=== PATIENT | male | born 1955 | race Caucasian/White ===

== ENCOUNTER → 2022-09-11 13:30 | Outpatient (CLI) | payer OTHER, SELFPAY ==
[2022-09-11 19:17] LABS: Add Manual Diff / Slide Review NO; Basophils Absolute Auto 0 /uL (0-100); Basophils Percent Auto 0.9 % (0-2); Eosinophils Absolute Auto 0 /uL (0-450); Eosinophils Percent Auto 0.4 % (2-4); Hematocrit 41.1 % (41-53); Lymphocytes Absolute Auto 900 /uL (1100-4500); Lymphocytes Percent Auto 21.8 % (25-40); Mean Corpuscular HGB Conc 34.1 % (30-36); Mean Corpuscular Hemoglobin 37.1 PG (26-34); Mean Corpuscular Volume 108.9 fL (80-100); Monocytes Absolute Auto 600 /uL (0-900); Monocytes Percent Auto 14.5 % (3-14); Neutrophils Absolute Auto 2600 /uL (1500-7000); Neutrophils Percent Auto 62.4 % (50-75); Platelet Count 155 X10^3/uL (150-400); Red Blood Cell Count 3.77 X10^6/uL (4.5-5.9); Red Cell Distribution Width 14.2 % (11.6-14.8); White Blood Cell Count 4.2 X10^3/uL (4.5-11.0)
[2022-09-11 19:22] LABS: Alanine Aminotransferase 27 IU/L (<50); Albumin 3.9 g/dL (3.5-5.0); Albumin Globulin Ratio 1.5 (1.0-2.8); Alkaline Phosphatase 58 U/L (38-126); Aspartate Aminotransferase 55 IU/L (17-59); BUN Creatinine Ratio 13.7 (6-22); Bilirubin Total 0.8 mg/dL (0.2-1.3); Blood Urea Nitrogen 13 mg/dL (9-20); Carbon Dioxide 30 mmol/L (22-32); Chloride 99 mmol/L (98-107); Cholesterol 196 mg/dL (140-199); Estimated Glomerular Filt Rate > 60 mL/min (>60); Globulin 2.6 g/dL (1.7-4.1); Glucose 103 mg/dL (80-110); HDL Cholesterol 106 mg/dL (40-60); HEMOLYSIS < 15 (0-50); LDL Cholesterol Calculated 62 mg/dL (<100); Potassium 4.2 mmol/L (3.4-5.1); Sodium 137 mmol/L (137-145); Total Protein 6.5 g/dL (6.3-8.2); Triglycerides 141 mg/dL (35-150)
[2022-09-11 19:37] LABS: NT-proBNP (BNP-Adult 18+) 190 pg/mL (<125)
[2022-09-11 19:52] LABS: TSH w/ Reflex to FT4 2.11 uIU/mL (0.47-4.68)
[2022-09-11 20:17] LABS: Vitamin B12 391 pg/mL (239-931)
== END ==
PROVIDERS: PCP Family Medicine; Visit Provider Family Medicine
DX: E78.2 Mixed hyperlipidemia (principal); I10 Essential (primary) hypertension; I48.20 Chronic atrial fibrillation, unspecified; I50.22 Chronic systolic (congestive) heart failure; L40.50 Arthropathic psoriasis, unspecified; Z79.899 Other long term (current) drug therapy
CPT/HCPCS: 80053; 80061; 82607; 83880; 84443; 85025

== ENCOUNTER → 2022-11-27 10:13 | Outpatient (CLI) | payer OTHER, SELFPAY ==
[2022-11-27 20:25] LABS: Add Manual Diff / Slide Review NO; Basophils Absolute Auto 0 /uL (0-100); Basophils Percent Auto 0.3 % (0-2); Eosinophils Absolute Auto 0 /uL (0-450); Hematocrit 42.8 % (41-53); Hemoglobin 14.8 g/dL (13.5-17.5); Lymphocytes Absolute Auto 700 /uL (1100-4500); Lymphocytes Percent Auto 8.5 % (25-40); Mean Corpuscular HGB Conc 34.7 % (30-36); Mean Corpuscular Hemoglobin 36.7 PG (26-34); Monocytes Absolute Auto 1000 /uL (0-900); Monocytes Percent Auto 12.5 % (3-14); Neutrophils Absolute Auto 6500 /uL (1500-7000); Neutrophils Percent Auto 78.7 % (50-75); Platelet Count 153 X10^3/uL (150-400); Red Blood Cell Count 4.04 X10^6/uL (4.5-5.9); Red Cell Distribution Width 13.7 % (11.6-14.8); White Blood Cell Count 8.3 X10^3/uL (4.5-11.0)
== END ==
PROVIDERS: PCP Family Medicine; Visit Provider Physician Assistant Medical
DX: L03.114 Cellulitis of left upper limb (principal); W50.3XXA Accidental bite by another person, initial encounter
CPT/HCPCS: 85025; 87070; 87075; 87205

== ENCOUNTER 2022-11-27 18:49 | Inpatient (IN) | payer OTHER, MEDICARE, SELFPAY ==
[2022-11-27] VITALS (13 sets, daily range): BP systolic 92–110; BP diastolic 56–72; PULSE 60–91; RESP 14–38; TEMP 36.6–37.1; O2SAT 94–99; BMI 27.8
--- NOTE | 2022-11-27 19:20 | DI.RAD.S_ITS ---
PROCEDURE: XR CHEST 1V INDICATIONS: suspected sepsis TECHNIQUE: One view of the chest was acquired. COMPARISON: None. FINDINGS: Surgical changes and devices: Left pacemaker/AICD. Lungs and pleura: Lungs are clear. Calcified granulomas. No pleural effusions or pneumothorax. Mediastinum: Mediastinal contours appear normal. Heart size is within normal limits. Bones and chest wall: No suspicious bony lesions. Overlying soft tissues appear unremarkable. IMPRESSION: No acute cardiopulmonary abnormality. Dictated by: Robinson Arce M.D. on 11/27/2022 at 20:29 Approved by: Robinson Arce M.D. on 11/27/2022 at 20:31
--- NOTE | 2022-11-27 19:29 | ED.SKABFB ---
HPI - Skin/Abscess/Foreign Bdy General Chief complaint: Skin/Abscess/Foreign Body Stated complaint: Sent from [place], Reaction to cat scratch Time Seen by Provider: 11/27/22 18:54 Source: patient Mode of arrival: Ambulatory History of Present Illness HPI narrative: This is a 67-year-old male who presents with 3 days of increasing redness and swelling tracking up his arm. Patient states [address] clot him in his left forearm. He states yesterday he had about a 4 x 5 patch of red painful skin that popped up and today that has extended arms towards his biceps and has since tract into the axilla. Patient states no fevers. No cold or chills. No chest pain, no shortness of breath, denies any nausea or vomiting, no numbness tingling or weakness. He has pain over the area of the rash but has full range of motion. No numbness or tingling. He states bowel movements have been a little bit more solid but regular. No urinary symptoms. He states the cat belongs to them did not have its vaccinations but was acting normally. He states his tetanus was updated today at outpatient office. They gave him a dose of Rocephin IM and prescription for 2 tablets of Augmentin 875 mg he is had 1 of these. Patient states he has a prior AICD/pacemaker, he has had graft or stent or states he has a wire that was placed in his aorta. He is anticoagulant Eliquis, hypertension, atrial fibrillation, patient states no diabetes but is on dapagliflozin. Patient does take Lasix intermittently but states it is rarely. He denies other surgeries by sides his AICD pacer and aneurysm graft. No known drug allergies. Quit smoking tobacco, he drinks 2 or 3 alcoholic drinks daily, uses THC but no other illicit. He is moving from [facility] to [facility] 2 weeks. He states his blood pressure this morning was about 120 he is low here in the 90s he states typically 110 is his normal. He is accompanied by his . Dr. Yang is his primary care. Related Data Home Medications Medication Instructions Recorded Confirmed alendronate 70 mg tablet 70 mg PO QWEEK 09/10/22 11/27/22 amiodarone 200 mg tablet 200 mg PO DAILY 09/10/22 11/27/22 apixaban 5 mg tablet 5 mg PO BID 09/10/22 11/27/22 cholecalciferol (vitamin D3) 25 25 mcg PO DAILY 09/10/22 11/27/22 mcg (1,000 unit) capsule dapagliflozin 10 mg tablet 10 mg PO QAM 09/10/22 11/27/22 eplerenone 25 mg tablet 25 mg PO DAILY 09/10/22 11/27/22 furosemide 20 mg tablet 40 mg PO DAILY PRN edema 09/10/22 11/27/22 gabapentin 300 mg capsule See Rx Instructions .Route .COMPLEX 09/10/22 11/27/22 magnesium 250 mg tablet 250 mg PO DAILY 09/10/22 11/27/22 metoprolol succinate 25 mg 50 mg PO BID 09/10/22 11/27/22 tablet,extended release 24 hr omeprazole 20 mg capsule,delayed 20 mg PO DAILY 09/10/22 11/27/22 release oxycodone 5 mg tablet 5 mg PO BID PRN 09/10/22 11/27/22 pravastatin 40 mg tablet 40 mg PO DAILY 09/10/22 11/27/22 sacubitril 97 mg-valsartan 103 mg 1 tab PO BID 09/10/22 11/27/22 tablet (Entresto) sulfasalazine 500 mg tablet 1 g PO BID 09/10/22 11/27/22 tamsulosin 0.4 mg capsule 0.4 mg PO DAILY 09/10/22 11/27/22 tofacitinib 11 mg tablet,extended 11 mg PO DAILY 09/10/22 11/27/22 release 24 hr (Xeljanz XR) potassium chloride 10 mEq 10 meq PO DAILY PRN for weight 11/27/22 11/27/22 tablet,extended release gain greater than 3 pounds Previous Rx's Medication Instructions Recorded amoxicillin 875 mg-potassium 1 tab PO BID #20 tabs 11/27/22 clavulanate 125 mg tablet amoxicillin-potassium clavulanate 1 tab PO BID #20 tabs 11/27/22 1,000 mg-62.5 mg tablet,ext.rel 12hr (Augmentin XR) Allergies Allergy/AdvReac Type Severity Reaction Status Date / Time No Known Drug Allergies Allergy Verified 11/27/22 18:57 Review of Systems Review of Systems ROS Unobtainable: All systems reviewed & are unremarkable except as noted in HPI and below Patient History Social History Smoking Status: Former smoker Smoking Status: Former smoker tobacco type: vaping alcohol intake frequency: 0-2 drinks per day Alcohol type: hard liquor Substance Use Type: marijuana Exam Narrative Exam Narrative: GENERAL: Alert and oriented x three, male in mild distress HEENT: Head normocephalic, atraumatic, EOMI, pupils reactive, face symmetric, moist mucous membranes NECK: Supple, full range of motion CARDIOVASCULAR: Regular rate and rhythm without murmurs, rubs or gallops. RESPIRATORY: Breath sounds equal bilaterally, no wheezes rales or rhonchi. ABDOMEN: Soft, nontender. Normoactive bowel sounds all 4 quadrants. No guarding or rebound, rigidity, no mass : No CVA tenderness EXTREMITIES: Normal range of motion, no clubbing. Patient has significant erythema tracking entire right arm to the biceps it is not circumferential but then does track of the inner portion of the arm with streak extending all the way to the axilla and tenderness in the axilla. No obvious fluid collections. Patient has full range of motion. 2+ radial pulses bilaterally. Cap refill felt less than 2 seconds bilaterally with normal strength. There is a small puncture at the base of the arm on the volar side. Neurovascularly intact NEUROLOGICAL: Cranial nerves II through XII grossly intact. Moving all extremities SKIN: Warm, dry, no petechiae, see above. Initial Vital Signs Initial Vital Signs: Vital Signs Temperature 98.8 F 11/27/22 18:58 Pulse Rate 60 11/27/22 18:58 Respiratory Rate 18 11/27/22 18:58 Blood Pressure 106/58 L 11/27/22 18:58 Pulse Oximetry 97 11/27/22 18:58 Oxygen Delivery Method Room Air 11/27/22 18:58 Course Orders Ordered: ED Orders 11/27/22 19:20 XR chest 1V Stat EKG-12 Lead Stat RT Consult Eval and Treat NOW 11/27/22 19:23 Blood Culture Stat Complete Blood Count AUTO DIFF Stat Comprehensive Metabolic Panel Stat Lactate (Lactic Acid) Stat Lipase Stat PTT Partial Thromboplastin Arley Stat Procalcitonin Stat Prothrombin Time INR Stat 11/27/22 19:53 COVID19 -Nasal RAPID Stat 11/27/22 21:30 MRSA (Nasal) PCR Stat 11/28/22 05:00 Basic Metabolic Panel Routine Complete Blood Count AUTO DIFF Routine Acetaminophen (Acetaminophen 325 Mg Tablet) 650 mg PO Q6H PRN PRN Reason: Fever/Mild Pain (1-3) Amiodarone HCl (Amiodarone 200 Mg Tablet) 200 mg PO DAILY [facility] Apixaban (Apixaban 5 Mg Tablet) 5 mg PO BID [facility] Azithromycin (Azithromycin 250 Mg Tablet) 250 mg PO DAILY [facility] Ampicillin Sodium/Sulbactam (Sodium 3 gm/ Sodium Chloride) 100 mls @ 200 mls/hr IV Q6H [facility] Metoprolol Succinate (Metoprolol Er 25 Mg Tablet) 50 mg PO BID [facility] Naloxone HCl (Naloxone 0.4 Mg/Ml Vial) 0.2 mg IV Q2MIN PRN PRN Reason: Opiate Reversal Ondansetron HCl (Ondansetron 4 Mg/2 Ml Inj) 4 mg IV Q8HR PRN PRN Reason: Nausea And Vomiting Oxycodone HCl (Oxycodone Ir 5 Mg Tablet) 5 mg PO Q4HR PRN PRN Reason: Pain, Moderate (4-6) Discontinued Medications Sodium Chloride (Normal Saline 0.9%) 1,000 mls @ 1,000 mls/hr IV BOLUS ONE Stop: 11/27/22 20:19 Last Infusion: 11/27/22 20:52 Dose: 0 mls/hr Documented By: Admin: 11/27/22 19:56 Dose: 1,000 mls/hr Documented By: GABBY Doxycycline Hyclate 100 mg/ (Sodium Chloride) 100 mls @ 100 mls/hr IV NOW ONE Stop: 11/27/22 19:52 Last Infusion: 11/27/22 21:48 Dose: 0 mls/hr Documented By: Admin: 11/27/22 20:38 Dose: 100 mls/hr Documented By: OMKAR Ampicillin Sodium/Sulbactam (Sodium 3 gm/ Sodium Chloride) 100 mls @ 200 mls/hr IV NOW ONE Stop: 11/27/22 19:54 Last Infusion: 11/27/22 20:49 Dose: 0 mls/hr Documented By: Admin: 11/27/22 20:13 Dose: 200 mls/hr Documented By: DAGOBERTO Ampicillin Sodium/Sulbactam (Sodium 3 gm/ Sodium Chloride) 100 mls @ 200 mls/hr IV Q6H GARRICK Lactated Ringer's (Lactated Ringers) 500 mls @ 1,000 mls/hr IV BOLUS ONE Stop: 11/27/22 22:49 Morphine Sulfate (Morphine 4 Mg/Ml Inj) 4 mg IV NOW ONE Stop: 11/27/22 22:00 Last Admin: 11/27/22 22:02 Dose: 4 mg Documented By: OMKAR Ondansetron HCl (Ondansetron 4 Mg Odt) 4 mg SL NOW PRN PRN Reason: Nausea And Vomiting Ondansetron HCl (Ondansetron 4 Mg/2 Ml Inj) 4 mg IV NOW PRN PRN Reason: Nausea And Vomiting Vital Signs Vital signs: Vital Signs - 8 hr 11/27/22 19:15 11/27/22 19:30 11/27/22 19:40 Pulse Rate 91 H 87 Respiratory Rate Blood Pressure 92/61 Pulse Oximetry 95 96 11/27/22 19:40 11/27/22 19:51 11/27/22 19:51 Pulse Rate 86 80 Respiratory Rate 14 38 H Blood Pressure 99/56 L Pulse Oximetry 96 96 11/27/22 20:00 11/27/22 20:00 11/27/22 20:30 Pulse Rate 80 70 Respiratory Rate 34 H 35 H Blood Pressure 110/72 Pulse Oximetry 97 98 11/27/22 21:00 11/27/22 21:30 Pulse Rate 73 73 Respiratory Rate 21 22 Blood Pressure Pulse Oximetry 98 98 MDM - Skin/Abscess/Foreign Bdy Lab Data 11/27/22 19:23 11/27/22 19:23 Labs: Lab Results 11/27/22 11/27/22 11/27/22 Range/Units 19:23 19:23 19:23 WBC 8.1 (4.5-11.0) X10^3/uL RBC 3.92 L (4.5-5.9) X10^6/uL Hgb 14.3 (13.5-17.5) g/dL Hct 41.2 (41-53) % MCV 105.3 H (80-100) fL MCH 36.6 H (26-34) PG MCHC 34.8 (30-36) % RDW 13.6 (11.6-14.8) % Plt Count 150 (150-400) X10^3/uL Neut % (Auto) 74.0 (50-75) % Lymph % (Auto) 14.2 L (25-40) % Burleigh % (Auto) 11.2 (3-14) % Eos % (Auto) 0.1 L (2-4) % Baso % (Auto) 0.5 (0-2) % Neut # (Auto) 6000 (6598-3239) /uL Lymph # (Auto) 1100 (0345-4985) /uL Burleigh # (Auto) 900 (0-900) /uL Eos # (Auto) 0 (0-450) /uL Baso # (Auto) 0 (0-100) /uL PT 20.6 H (10.1-12.7) SECONDS INR 1.8 H (0.9-1.3) APTT 35 (26-36) SECONDS Sodium 134 L (137-145) mmol/L Potassium 4.1 (3.4-5.1) mmol/L Chloride 99 (98-107) mmol/L Carbon Dioxide 27 (22-32) mmol/L BUN 18 (9-20) mg/dL Creatinine 1.38 H (0.66-1.25) mg/dL Estimated GFR 56 L (>60) mL/min BUN/Creatinine Ratio 13.0 (6-22) Glucose 149 H (80-110) mg/dL Lactate (0.7-2.1) mmol/L Calcium 9.2 (8.4-10.2) mg/dL Total Bilirubin 1.0 (0.2-1.3) mg/dL AST 40 (17-59) IU/L ALT 26 (<50) IU/L Alkaline Phosphatase 60 (38-126) U/L Total Protein 7.3 (6.3-8.2) g/dL Albumin 4.4 (3.5-5.0) g/dL Globulin 2.9 (1.7-4.1) g/dL Albumin/Globulin Ratio 1.5 (1.0-2.8) Lipase 62 (23-300) U/L Procalcitonin 0.16 (<0.5) ng/mL SARS-CoV-2 (PCR) (Negative) 11/27/22 11/27/22 Range/Units 19:23 19:53 WBC (4.5-11.0) X10^3/uL RBC (4.5-5.9) X10^6/uL Hgb (13.5-17.5) g/dL Hct (41-53) % MCV (80-100) fL MCH (26-34) PG MCHC (30-36) % RDW (11.6-14.8) % Plt Count (150-400) X10^3/uL Neut % (Auto) (50-75) % Lymph % (Auto) (25-40) % [place] % (Auto) (3-14) % Eos % (Auto) (2-4) % Baso % (Auto) (0-2) % Neut # (Auto) (0849-0125) /uL Lymph # (Auto) (1145-0071) /uL [place]leigh # (Auto) (0-900) /uL Eos # (Auto) (0-450) /uL Baso # (Auto) (0-100) /uL PT (10.1-12.7) SECONDS INR (0.9-1.3) APTT (26-36) SECONDS Sodium (137-145) mmol/L Potassium (3.4-5.1) mmol/L Chloride (98-107) mmol/L Carbon Dioxide (22-32) mmol/L BUN (9-20) mg/dL Creatinine (0.66-1.25) mg/dL Estimated GFR (>60) mL/min BUN/Creatinine Ratio (6-22) Glucose (80-110) mg/dL Lactate 2.5 H (0.7-2.1) mmol/L Calcium (8.4-10.2) mg/dL Total Bilirubin (0.2-1.3) mg/dL AST (17-59) IU/L ALT (<50) IU/L Alkaline Phosphatase (38-126) U/L Total Protein (6.3-8.2) g/dL Albumin (3.5-5.0) g/dL Globulin (1.7-4.1) g/dL Albumin/Globulin Ratio (1.0-2.8) Lipase (23-300) U/L Procalcitonin (<0.5) ng/mL SARS-CoV-2 (PCR) Negative (Negative) Imaging Data Chest x-ray: Radiologist's Impression: [address] [id number] XRay Report Signed Patient: Ga Baca MR#: [id number] : 1955 Acct:[id number] Age/Sex: 67 / M Date of Service: 11/27/22 Loc: ED Accession Number: [id number] ?? Procedure: XR chest 1V Ordering Provider: Ana Gold D.O. PROCEDURE:? XR CHEST 1V ? INDICATIONS:? suspected sepsis ? TECHNIQUE:? One view of the chest was acquired.? ? COMPARISON:? None. ? FINDINGS:? ? Surgical changes and devices:? Left pacemaker/AICD. ? Lungs and pleura:? Lungs are clear.? Calcified granulomas.? No pleural effusions or pneumothorax.? ? Mediastinum:? Mediastinal contours appear normal.? Heart size is within normal limits.? ? Bones and chest wall:? No suspicious bony lesions.? Overlying soft tissues appear unremarkable.? ? IMPRESSION:? No acute cardiopulmonary abnormality. ? ? ? Dictated by: Robinson Arce M.D. on 11/27/2022 at 20:29 ? ? Approved by: Robinson Arce M.D. on 11/27/2022 at 20:31 ECG Data Attestation: I personally reviewed and interpreted this ECG as follows: MDM Narrative Medical decision making narrative: This is a 67-year-old male with cardiac history, hypertension, dyslipidemia, diabetes, AICD with known atrial fibrillation anticoagulant apixaban and prior aneurysmal graft or stent. Patient had a CAT scratch 3 days ago which has since extended all the way up his arms with a cellulitis in his extending into the axilla. His tetanus was updated at out patient facility today. He received a dose of Rocephin IM but being inaddition to being covered with antibiotics for cat scratch disease, labs, fluids as patient is little bit hypotensive will start with gentle fluids rather than 30 cc/kilos bolus as he has high-risk for heart failure and discussed with hospitalist for admission. Dr. Ribera, accepts for cellulitis with likely developing sepsis. Discharge Plan Departure Patient Disposition: Admitted As Inpatient Clinical Impression: Cat scratch of left forearm with infection, Cellulitis Admit Date/Time: 11/27/22 21:32 Admit Provider: Uri Ribera
[2022-11-27 19:50] LABS: Add Manual Diff / Slide Review NO; Basophils Absolute Auto 0 /uL (0-100); Basophils Percent Auto 0.5 % (0-2); Eosinophils Absolute Auto 0 /uL (0-450); Eosinophils Percent Auto 0.1 % (2-4); Hematocrit 41.2 % (41-53); Hemoglobin 14.3 g/dL (13.5-17.5); Lymphocytes Absolute Auto 1100 /uL (1100-4500); Lymphocytes Percent Auto 14.2 % (25-40); Mean Corpuscular HGB Conc 34.8 % (30-36); Mean Corpuscular Hemoglobin 36.6 PG (26-34); Mean Corpuscular Volume 105.3 fL (80-100); Monocytes Absolute Auto 900 /uL (0-900); Monocytes Percent Auto 11.2 % (3-14); Neutrophils Absolute Auto 6000 /uL (1500-7000); Platelet Count 150 X10^3/uL (150-400); Red Blood Cell Count 3.92 X10^6/uL (4.5-5.9); Red Cell Distribution Width 13.6 % (11.6-14.8); White Blood Cell Count 8.1 X10^3/uL (4.5-11.0)
[2022-11-27] MEDS: SODIUM CHLORIDE 0.9% 1,000 ML 1000 ML IV (19:56)
[2022-11-27 20:06] LABS: INR 1.8 (0.9-1.3); Prothrombin Time 20.6 SECONDS (10.1-12.7)
[2022-11-27 20:09] LABS: PTT Partial Thromboplastin Tim 35 SECONDS (26-36)
[2022-11-27 20:13] LABS: Lactate (Lactic Acid) 2.5 mmol/L (0.7-2.1)
[2022-11-27] MEDS: AMPICILLIN/SULBACTAM 3 GM 3 GM in SODIUM CHLORIDE 0.9% 100 ML IV (20:13)
[2022-11-27 20:14] LABS: Alanine Aminotransferase 26 IU/L (<50); Albumin 4.4 g/dL (3.5-5.0); Albumin Globulin Ratio 1.5 (1.0-2.8); Alkaline Phosphatase 60 U/L (38-126); Aspartate Aminotransferase 40 IU/L (17-59); Blood Urea Nitrogen 18 mg/dL (9-20); Calcium 9.2 mg/dL (8.4-10.2); Carbon Dioxide 27 mmol/L (22-32); Chloride 99 mmol/L (98-107); Estimated Glomerular Filt Rate 56 mL/min (>60); Globulin 2.9 g/dL (1.7-4.1); Glucose 149 mg/dL (80-110); HEMOLYSIS < 15 (0-50); Lipase 62 U/L (23-300); Potassium 4.1 mmol/L (3.4-5.1); Sodium 134 mmol/L (137-145); Total Protein 7.3 g/dL (6.3-8.2)
[2022-11-27 20:14] LABS: COVID19 -Nasal RAPID Negative (Negative)
[2022-11-27 20:31] LABS: Procalcitonin 0.16 ng/mL (<0.5)
[2022-11-27] MEDS: DOXYCYCLINE 100 MG in SODIUM CHLORIDE 0.9% 100 ML IV (20:38)
--- NOTE | 2022-11-27 21:30 | PM.HP.1 ---
History of Present Illness History of Present Illness Date Patient Seen: 11/28/22 Time Patient Seen: 21:00 Chief complaint: Sent from [place], Reaction to cat scratch Narrative: Mr. Baca is a 67M with PMH afib, s/p aicd, osteoporosis, CHFrEF, psoriatic arthritis who presents to the hospital with pain, redness and swelling o fhis left arm. He states that three days ago his cat scratched his left forearm. Initially he noted no significant abnormalities but yesterday he had an area of erythema that began on his distal arm and has been extending up his arm. He did describe what sounded like a potential vesicle on his arm. He has a chronic rash due to psoriatic arthritis and is on immunosuppressant Xeljanz. He has not noted any abdominal pain, nausea, fever, confusion, visual changes. Earlier today he wa seen in clinic and given IV ceftriaxone IM and then a prescription for Augmentin for which he took one dose. He had at that time the rash demarcated, and it is clear upon presenting here that the erythema has progressed passed demarcation. In the ED workup was done, vitals notable for afebrile, heart rate in 60s, blood pressure 100s/50s. sats 97% on room air. Labs reviewed by me and notable for WBC 8.1, hgb 14.3, plts 150, creatinine 1.38. INR 1.8. Procal 0.16. Lactate 2.5. COVID negative. Chest xray reviewed by me and negative for consolidation. He was ordered for antibiotics and fluids and admitted for further treatment. [facility] Social History Smoking Status: Former smoker Meds Home Medications and Allergies Home Medications Medication Instructions Recorded Confirmed Type alendronate 70 mg tablet 70 mg PO QWEEK 09/10/22 11/27/22 History amiodarone 200 mg tablet 200 mg PO DAILY 09/10/22 11/27/22 History apixaban 5 mg tablet 5 mg PO BID 09/10/22 11/27/22 History cholecalciferol (vitamin D3) 25 25 mcg PO DAILY 09/10/22 11/27/22 History mcg (1,000 unit) capsule dapagliflozin 10 mg tablet 10 mg PO QAM 09/10/22 11/27/22 History eplerenone 25 mg tablet 25 mg PO DAILY 09/10/22 11/27/22 History furosemide 20 mg tablet 40 mg PO DAILY PRN edema 09/10/22 11/27/22 History gabapentin 300 mg capsule See Rx Instructions .Route .COMPLEX 09/10/22 11/27/22 History magnesium 250 mg tablet 250 mg PO DAILY 09/10/22 11/27/22 History metoprolol succinate 25 mg 50 mg PO BID 09/10/22 11/27/22 History tablet,extended release 24 hr omeprazole 20 mg capsule,delayed 20 mg PO DAILY 09/10/22 11/27/22 History release oxycodone 5 mg tablet 5 mg PO BID PRN 09/10/22 11/27/22 History pravastatin 40 mg tablet 40 mg PO DAILY 09/10/22 11/27/22 History sacubitril 97 mg-valsartan 103 mg 1 tab PO BID 09/10/22 11/27/22 History tablet (Entresto) sulfasalazine 500 mg tablet 1 g PO BID 09/10/22 11/27/22 History tamsulosin 0.4 mg capsule 0.4 mg PO DAILY 09/10/22 11/27/22 History tofacitinib 11 mg tablet,extended 11 mg PO DAILY 09/10/22 11/27/22 History release 24 hr (Xeljanz XR) amoxicillin 875 mg-potassium 1 tab PO BID #20 tabs 11/27/22 Rx clavulanate 125 mg tablet amoxicillin-potassium clavulanate 1 tab PO BID #20 tabs 11/27/22 11/27/22 Rx 1,000 mg-62.5 mg tablet,ext.rel 12hr (Augmentin XR) potassium chloride 10 mEq 10 meq PO DAILY PRN for weight 11/27/22 11/27/22 History tablet,extended release gain greater than 3 pounds Allergies Allergy/AdvReac Type Severity Reaction Status Date / Time No Known Drug Allergies Allergy Verified 11/27/22 18:57 Review of Systems Review of Systems Narrative: 14 systems reviewed and negative aside from what is noted in HPI Exam Vital Signs (past 8 hours): - 11/27/22 18:58 Temperature 98.8 F Pulse Rate 60 Respiratory Rate 18 Blood Pressure 106/58 L Pulse Oximetry 97 Oxygen Delivery Method Room Air Oxygen Delivery Method Room Air Narrative Exam Narrative: GEN: no acute distress HEENT: moist mucous membranes, PERRL NECK: trachea midline, no JVD PULM: clear bilaterally, no wheezes, rhonchi, rales CV: regular rate and rhythm, no murmurs ABD: soft, nontender, nondistended, no organomegaly EXT: warm and well perfused with no edema NEURO: awake, alert, oriented, no focal deficits Objective Labs 11/27/22 19:23 11/27/22 19:23 Labs: Laboratory Results - last 24 hr 11/27/22 11/27/22 11/27/22 19:23 19:23 19:23 WBC 8.1 RBC 3.92 L Hgb 14.3 Hct 41.2 MCV 105.3 H MCH 36.6 H MCHC 34.8 RDW 13.6 Plt Count 150 Neut % (Auto) 74.0 Lymph % (Auto) 14.2 L Mower % (Auto) 11.2 Eos % (Auto) 0.1 L Baso % (Auto) 0.5 Neut # (Auto) 6000 Lymph # (Auto) 1100 Mower # (Auto) 900 Eos # (Auto) 0 Baso # (Auto) 0 PT 20.6 H INR 1.8 H APTT 35 Sodium 134 L Potassium 4.1 Chloride 99 Carbon Dioxide 27 BUN 18 Creatinine 1.38 H Estimated GFR 56 L BUN/Creatinine Ratio 13.0 Glucose 149 H Lactate Calcium 9.2 Total Bilirubin 1.0 AST 40 ALT 26 Alkaline Phosphatase 60 Total Protein 7.3 Albumin 4.4 Globulin 2.9 Albumin/Globulin Ratio 1.5 Lipase 62 Procalcitonin 0.16 SARS-CoV-2 (PCR) 11/27/22 11/27/22 19:23 19:53 WBC RBC Hgb Hct MCV MCH MCHC RDW Plt Count Neut % (Auto) Lymph % (Auto) Mower % (Auto) Eos % (Auto) Baso % (Auto) Neut # (Auto) Lymph # (Auto) Mower # (Auto) Eos # (Auto) Baso # (Auto) PT INR APTT Sodium Potassium Chloride Carbon Dioxide BUN Creatinine Estimated GFR BUN/Creatinine Ratio Glucose Lactate 2.5 H Calcium Total Bilirubin AST ALT Alkaline Phosphatase Total Protein Albumin Globulin Albumin/Globulin Ratio Lipase Procalcitonin SARS-CoV-2 (PCR) Negative Assessment & Plan Assessment & Plan narrative: 1. Left arm cellulitis, from cat scratch -patient with rapidly worsening cellulitis in left arm -clinically this is more consistent with pasteurella infection -think is is less likely cat scratch disease with no lymphadenitis, no hepatosplenomegaly involvement, no neurologic or optic involvement -however does have description of vesicle, and patient is immunosuppressed and a higher risk -for now will treat with unasyn for cellulitis, and azithromycin for cat scratch disease, will hold on further treatment for cat scratch disease as no evidence of systemic organ involvement -suspect rapid worsening could be related to xeljanz causing immunosuppression -order mrsa swab, if positive will add mrsa coverage -initial presentation with elevated lactate at 2.5, did receive 1L fluid -order additional 500cc IVF, careful with fluids given history of chf -recheck lactate -blood pressure improved from systolic of 90s to 110s -if infection not improving will need further broadening of antibiotics -follow up cultures 2. LIANE -suspect secondary to hypovolemia secondary to infection -did get fluids in the ED -suspect LIANE will improve after fluids, will recheck in AM -if not improved will need further workup with urine electrolytes and imaging 3. Chronic aftrial fibrillation s/p AICD -continue amiodarone and eliquis 4. Psoriatic arthritis -hold xaljenz given significant infection 5. Chronic vertebral compression fracture -continue home alendronate 6. Chronic CHF systolic, not in exacerbation -hold blood pressure and diuretic medications tonight -monitor for volume overload -per patient on dapagliflozin but not not diabetic I have discussed plan and obtained history from patient and family. I have discussed plan of care with ED physician and bedside nurse. I have reviewed labs and imaging. CODE: Full Proxy: Boni Baca, spouse [employer] [facility] - Meds 'Current medications' to include all prescriptions, [id number] products, herbals, cannabis/cannabidiol products, and vitamin/mineral/dietary (nutritional) supplements. I have utilized all available resources to obtain, update, or review the patient?s current medications. [If Yes, STOP here]: Yes
[2022-11-27 21:44] LABS: Reflexed Lactate in 2 Hours Y
[2022-11-27] MEDS: MORPHINE 4 MG/ML INJ IV (22:02)
[2022-11-27] MEDS: LACTATED RINGERS 500 ML 1000 ML IV (23:00)
[2022-11-27 23:35] LABS: Lactate 2HR (Lactic Acid Rflx) 2.5 mmol/L (0.7-2.1)
[2022-11-28] VITALS (9 sets, daily range): BP systolic 94–123; BP diastolic 49–68; PULSE 66–74; RESP 16–18; TEMP 36.3–37.3; O2SAT 95–99
[2022-11-28] MEDS: OXYCODONE IR 5 MG TABLET PO (04:32)
[2022-11-28] MEDS: AMPICILLIN/SULBACTAM 3 GM 3 GM in SODIUM CHLORIDE 0.9% 100 ML IV ×4 (04:33→21:27)
[2022-11-28 05:41] LABS: Add Manual Diff / Slide Review NO; Basophils Absolute Auto 0 /uL (0-100); Basophils Percent Auto 0.6 % (0-2); Eosinophils Absolute Auto 0 /uL (0-450); Eosinophils Percent Auto 0.6 % (2-4); Hematocrit 37.5 % (41-53); Hemoglobin 12.8 g/dL (13.5-17.5); Lymphocytes Absolute Auto 1300 /uL (1100-4500); Lymphocytes Percent Auto 21.4 % (25-40); Mean Corpuscular HGB Conc 34.2 % (30-36); Mean Corpuscular Hemoglobin 36.1 PG (26-34); Mean Corpuscular Volume 105.6 fL (80-100); Monocytes Absolute Auto 700 /uL (0-900); Monocytes Percent Auto 11.5 % (3-14); Neutrophils Absolute Auto 4000 /uL (1500-7000); Neutrophils Percent Auto 65.9 % (50-75); Platelet Count 116 X10^3/uL (150-400); Red Blood Cell Count 3.55 X10^6/uL (4.5-5.9); Red Cell Distribution Width 13.5 % (11.6-14.8); White Blood Cell Count 6.1 X10^3/uL (4.5-11.0)
[2022-11-28 05:45] LABS: BUN Creatinine Ratio 14.7 (6-22); Blood Urea Nitrogen 15 mg/dL (9-20); Calcium 8.2 mg/dL (8.4-10.2); Carbon Dioxide 27 mmol/L (22-32); Chloride 102 mmol/L (98-107); Estimated Glomerular Filt Rate > 60 mL/min (>60); Glucose 107 mg/dL (80-110); HEMOLYSIS < 15 (0-50); Potassium 3.9 mmol/L (3.4-5.1); Sodium 135 mmol/L (137-145)
[2022-11-28 06:40] LABS: Lactate (Lactic Acid) 1.2 mmol/L (0.7-2.1)
[2022-11-28] MEDS: METOPROLOL ER 25 MG TABLET 50 MG PO (08:45)
[2022-11-28] MEDS: APIXABAN 5 MG TABLET PO ×2 (08:45→21:26)
[2022-11-28] MEDS: AZITHROMYCIN 250 MG TABLET PO (08:45)
[2022-11-28] MEDS: AMIODARONE 200 MG TABLET PO (08:45)
--- NOTE | 2022-11-28 11:01 | PC.NURSE ---
Assess- Patient has a catch scratch to his left forearm that got infected. Area is outlined in black ink, it is red, warm and tender to touch but looks better today per patient. He is getting po and iv antibiotics. Patient will be here until tomorrow and then go back to [place].
[2022-11-28 12:02] LABS: MRSA (Nasal) PCR Not Detected (Not Detect)
--- NOTE | 2022-11-28 12:09 | CM.DANOTE ---
Patient is a 67 yo male who was admitted on 11/27/22 for Cellulitis. Pt has [employer] and MCR A only and his PCP is Dr. Matty Yang. EMR was reviewed. Per MD, pt had a cat scratch which became infected and now admitted for IV-Abx and then likely discharge home on orals. SW met bedside with pt and explained role and pt confirms he lives on [address] with his spouse and is independent at baseline and drives but confirms he is less steady with ambulation with longer distances and then he will use a cane for additional support. Pt denies any hx of recent HH or SNF but has a long medical hx and being in the hospital in the past but no recent admissions in the last few years. Pt states spouse is his DPOA and is back on [place] and was going to come visit but MD keeping pt another night for IV-Abx before discharge on orals and therefore spouse will come in the morning to provide transport home. Pt states their car broke down and recently they have been using taxi for doctors appointments and to get to the store and spouse is also active and independent at baseline. Pt does not anticipate any needs at d/c and preference is home tomorrow via spouse POV is medically stable. Plan: SW to follow for likely d/c home tomorrow if medically stable and IV-Abx continue to help pt improve and any further identified discharge planning needs. WENDY Gomes Discharge Planning/Care Management CM Discharge Assessment Start: 11/28/22 12:05 Freq: Status: Active Protocol: Document 11/28/22 12:06 (Rec: 11/28/22 12:09 [id number]) Discharge Planning Assessment Assigned Supervisor Color P[employer] Mixing WENDY Flaherty DPOA/Assigned Designee Name spouse Boni Contact Information [phone] Advance Directives? Yes Advance Directives on File Yes History Provided By Patient,Medical Record Has Patient been admitted in last 30 No days? Prior Living Arrangements House Household Members spouse Type of transporation used prior to Drives own vehicle admit Independent with ADL's Yes Is patient alert and oriented? Yes Needs Assistance With Home Chores / Shopping Caregiver for Another No DME Already Rented / Owned Cane Comment Pending progress, likely home with spouse assist Barriers to Discharge No Discharge Plan Home Transportation Arrangement spouse to transport at d/c Referrals Initiated None needed Whiteboard Updated in Patient Room with Yes name and ext. # of Supervisor [employer] Paste Mixing Review Status In Process Please Provide Date Initial DC 11/28/22 Assessment Was Performed Next Review Type Continued Stay Review
[2022-11-28] MEDS: GABAPENTIN 300 MG CAPSULE PO ×2 (14:56→21:26)
--- NOTE | 2022-11-28 15:36 | P.PN_ITS ---
Subjective Subjective Interval history: Patient's left arm cellulitis has improved quite a bit. Pain, swelling, redness and warmth has decreased. Exam Vital Signs (past 8 hours): - 11/28/22 07:53 11/28/22 11:00 Temperature 97.6 F Pulse Rate 71 Respiratory Rate 18 Blood Pressure 107/57 L Pulse Oximetry 99 Oxygen Delivery Method Room Air Oxygen Flow Rate 0 Oxygen Delivery Method Room Air Oxygen Flow Rate 0 Narrative Exam Narrative: GEN: no acute distress HEENT: moist mucous membranes, PERRL NECK: trachea midline, no JVD PULM: clear bilaterally, no wheezes, rhonchi, rales CV: regular rate and rhythm, no murmurs ABD: soft, nontender, nondistended, no organomegaly EXT: LUE with redness, swelling and warmth extending from outer forearm to elbow NEURO: awake, alert, oriented, no focal deficits Objective Labs 11/28/22 04:56 11/28/22 04:56 Labs: Laboratory Results - last 24 hr 11/27/22 11/27/22 11/27/22 10:49 19:23 19:23 WBC 8.1 RBC 3.92 L Hgb 14.3 Hct 41.2 MCV 105.3 H MCH 36.6 H MCHC 34.8 RDW 13.6 Plt Count 150 Neut % (Auto) 74.0 Lymph % (Auto) 14.2 L [place] % (Auto) 11.2 Eos % (Auto) 0.1 L Baso % (Auto) 0.5 Neut # (Auto) 6000 Lymph # (Auto) 1100 [place] # (Auto) 900 Eos # (Auto) 0 Baso # (Auto) 0 PT 20.6 H INR 1.8 H APTT 35 Sodium Potassium Chloride Carbon Dioxide BUN Creatinine Estimated GFR BUN/Creatinine Ratio Glucose Lactate Calcium Total Bilirubin AST ALT Alkaline Phosphatase Total Protein Albumin Globulin Albumin/Globulin Ratio Lipase Procalcitonin Nasal Screen MRSA (PCR) Not detected SARS-CoV-2 (PCR) 11/27/22 11/27/22 11/27/22 19:23 19:23 19:53 WBC RBC Hgb Hct MCV MCH MCHC RDW Plt Count Neut % (Auto) Lymph % (Auto) [place] % (Auto) Eos % (Auto) Baso % (Auto) Neut # (Auto) Lymph # (Auto) [place] # (Auto) Eos # (Auto) Baso # (Auto) PT INR APTT Sodium 134 L Potassium 4.1 Chloride 99 Carbon Dioxide 27 BUN 18 Creatinine 1.38 H Estimated GFR 56 L BUN/Creatinine Ratio 13.0 Glucose 149 H Lactate 2.5 H Calcium 9.2 Total Bilirubin 1.0 AST 40 ALT 26 Alkaline Phosphatase 60 Total Protein 7.3 Albumin 4.4 Globulin 2.9 Albumin/Globulin Ratio 1.5 Lipase 62 Procalcitonin 0.16 Nasal Screen MRSA (PCR) SARS-CoV-2 (PCR) Negative 11/27/22 11/28/22 11/28/22 23:15 04:56 04:56 WBC 6.1 RBC 3.55 L Hgb 12.8 L Hct 37.5 L MCV 105.6 H MCH 36.1 H MCHC 34.2 RDW 13.5 Plt Count 116 L Neut % (Auto) 65.9 Lymph % (Auto) 21.4 L [place] % (Auto) 11.5 Eos % (Auto) 0.6 L Baso % (Auto) 0.6 Neut # (Auto) 4000 Lymph # (Auto) 1300 [place] # (Auto) 700 Eos # (Auto) 0 Baso # (Auto) 0 PT INR APTT Sodium 135 L Potassium 3.9 Chloride 102 Carbon Dioxide 27 BUN 15 Creatinine 1.02 Estimated GFR > 60 BUN/Creatinine Ratio 14.7 Glucose 107 Lactate 2.5 H Calcium 8.2 L Total Bilirubin AST ALT Alkaline Phosphatase Total Protein Albumin Globulin Albumin/Globulin Ratio Lipase Procalcitonin Nasal Screen MRSA (PCR) SARS-CoV-2 (PCR) 11/28/22 06:13 WBC RBC Hgb Hct MCV MCH MCHC RDW Plt Count Neut % (Auto) Lymph % (Auto) [place] % (Auto) Eos % (Auto) Baso % (Auto) Neut # (Auto) Lymph # (Auto) [place] # (Auto) Eos # (Auto) Baso # (Auto) PT INR APTT Sodium Potassium Chloride Carbon Dioxide BUN Creatinine Estimated GFR BUN/Creatinine Ratio Glucose Lactate 1.2 Calcium Total Bilirubin AST ALT Alkaline Phosphatase Total Protein Albumin Globulin Albumin/Globulin Ratio Lipase Procalcitonin Nasal Screen MRSA (PCR) SARS-CoV-2 (PCR) [facility] Social History household members: spouse Smoking Status: Former smoker Assessment & Plan Assessment & Plan narrative: 1. Left arm cellulitis, from cat scratch, improving -patient with rapidly worsening cellulitis in left arm, now improving with IV abx -clinically this is more consistent with pasteurella infection -think is is less likely cat scratch disease with no lymphadenitis, no hepatosplenomegaly involvement, no neurologic or optic involvement -however does have description of vesicle, and patient is immunosuppressed and a higher risk -for now will treat with unasyn for cellulitis, and azithromycin for cat scratch disease, will hold on further treatment for cat scratch disease as no evidence of systemic organ involvement -suspect rapid worsening could be related to xeljanz causing immunosuppression -mrsa swab negative -initial presentation with elevated lactate at 2.5, did receive 1L fluid and now normal -follow up blood cultures 2. LIANE, resolved -suspect secondary to hypovolemia secondary to infection -did get fluids in the ED -Cr now normal 3. Chronic aftrial fibrillation s/p AICD -continue amiodarone and eliquis 4. Psoriatic arthritis -hold xaljenz given significant infection 5. Chronic vertebral compression fracture -continue home alendronate 6. Chronic CHF systolic, not in exacerbation -hold blood pressure and diuretic medications tonight -monitor for volume overload -per patient on dapagliflozin but not not diabetic CODE: Full Proxy: Boni Keven, spouse Dispo: Home in 1-2 days. Quality VTE Deep Vein Thrombosis/Pulmonary Embolism Present on Admission: No
[2022-11-28] MEDS: diphenhydrAMINE 25 MG TABLET PO (21:26)
[2022-11-29] VITALS (9 sets, daily range): BP systolic 90–112; BP diastolic 48–68; PULSE 69–92; RESP 15–20; TEMP 36.6–37; O2SAT 95–98
[2022-11-29] MEDS: AMPICILLIN/SULBACTAM 3 GM 3 GM in SODIUM CHLORIDE 0.9% 100 ML IV ×2 (02:56→10:00)
--- NOTE | 2022-11-29 08:40 | PM.DS.1 ---
History of Present Illness History of Present Illness Date Patient Seen: 11/28/22 Time Patient Seen: 21:00 Chief complaint: Sent from [place], Reaction to cat scratch Narrative: Mr. Baca is a 67M with PMH afib, s/p aicd, osteoporosis, CHFrEF, psoriatic arthritis who presents to the hospital with pain, redness and swelling o fhis left arm. He states that three days ago his cat scratched his left forearm. Initially he noted no significant abnormalities but yesterday he had an area of erythema that began on his distal arm and has been extending up his arm. He did describe what sounded like a potential vesicle on his arm. He has a chronic rash due to psoriatic arthritis and is on immunosuppressant Xeljanz. He has not noted any abdominal pain, nausea, fever, confusion, visual changes. Earlier today he wa seen in clinic and given IV ceftriaxone IM and then a prescription for Augmentin for which he took one dose. He had at that time the rash demarcated, and it is clear upon presenting here that the erythema has progressed passed demarcation. In the ED workup was done, vitals notable for afebrile, heart rate in 60s, blood pressure 100s/50s. sats 97% on room air. Labs reviewed by me and notable for WBC 8.1, hgb 14.3, plts 150, creatinine 1.38. INR 1.8. Procal 0.16. Lactate 2.5. COVID negative. Chest xray reviewed by me and negative for consolidation. He was ordered for antibiotics and fluids and admitted for further treatment. Discharge Providers Provider Date of admission: 11/27/22 21:32 Discharge Date: 11/29/22 Primary care physician: Matty Yang MD Discharge provider: Diego Epperson DO Summary Hospital Course Discharge Diagnosis: 1. Left arm cellulitis, from cat scratch, improving -patient with rapidly worsening cellulitis in left arm, now improving with IV abx -clinically this is more consistent with pasteurella infection -think is is less likely cat scratch disease with no lymphadenitis, no hepatosplenomegaly involvement, no neurologic or optic involvement -however does have description of vesicle, and patient is immunosuppressed and a higher risk -for now will treat with unasyn for cellulitis, and azithromycin for cat scratch disease, will hold on further treatment for cat scratch disease as no evidence of systemic organ involvement -suspect rapid worsening could be related to xeljanz causing immunosuppression -mrsa swab negative -initial presentation with elevated lactate at 2.5, did receive 1L fluid and now normal -blood cultures NG at 24 hours 2. LIANE, resolved -suspect secondary to hypovolemia secondary to infection -did get fluids in the ED -Cr now normal 3. Chronic aftrial fibrillation s/p AICD -continue amiodarone and eliquis 4. Psoriatic arthritis -hold xaljenz given significant infection 5. Chronic vertebral compression fracture -continue home alendronate 6. Chronic CHF systolic, not in exacerbation -hold blood pressure and diuretic medications tonight -monitor for volume overload -per patient on dapagliflozin but not not diabetic Hospital Course: Admitted for worsening left arm cellulitis sustained after his cat scratched him. Started on unasyn and azithro to cover for pasteurella and bacterial infection. Improved nicely over 2 days of IV abx. Had an LIANE which resolved with IVF. Discharged on 5 more days of po augmentin and 3 days of po azithro. Time Spent with Patient Time spent: Greater than 30 minutes Exam Vital Signs (past 8 hours): - 11/29/22 02:04 11/29/22 03:04 11/29/22 04:00 Temperature Pulse Rate 69 77 Respiratory Rate Blood Pressure 90/48 L 99/55 L Pulse Oximetry 95 95 Oxygen Delivery Method Room Air 11/29/22 06:00 Temperature 97.8 F Pulse Rate 70 Respiratory Rate 17 Blood Pressure 110/68 Pulse Oximetry 96 Oxygen Delivery Method Oxygen Delivery Method Room Air Oxygen Flow Rate 0 Narrative Exam Narrative: GEN: no acute distress HEENT: moist mucous membranes, PERRL NECK: trachea midline, no JVD PULM: clear bilaterally, no wheezes, rhonchi, rales CV: regular rate and rhythm, no murmurs ABD: soft, nontender, nondistended, no organomegaly EXT: LUE with redness, swelling and warmth extending from outer forearm to elbow which is improving NEURO: awake, alert, oriented, no focal deficits Objective Labs 11/28/22 04:56 11/28/22 04:56 Labs: Laboratory Results - last 24 hr 11/27/22 10:49 Nasal Screen MRSA (PCR) Not detected PFSH Social History household members: spouse Smoking Status: Former smoker Discharge Plan Discharge Plan Patient Disposition: Home Provider Discharge Comment: You were admitted for a skin infection of your left forearm. You received IV antibiotics while in the hospital and your infection improved. You will now need to finish a course of oral antibiotics at home which I have sent to [facility]. Please take this new one for 3 days plus the antibiotic you already have for 5 days. Discharge orders & Medications Prescriptions: New azithromycin 250 mg tablet 250 mg PO DAILY 3 Days Qty: 3 0RF Rx Instructions: start on 11/30 Continued amoxicillin-pot clavulanate 875-125 mg tablet 1 tab PO BID Qty: 20 0RF Entresto 97-103 mg tablet 1 tab PO BID gabapentin 300 mg capsule 300 mg PO BID Rx Instructions: 3 cap QAM; 2 caps QPM; oxycodone 5 mg tablet 5 mg PO BID PRN (Reason: Pain, Severe) omeprazole 20 mg capsule,delayed release(DR/EC) 20 mg PO DAILY pravastatin 40 mg tablet 40 mg PO DAILY apixaban 5 mg tablet 5 mg PO BID tamsulosin 0.4 mg capsule 0.4 mg PO DAILY amiodarone 200 mg tablet 200 mg PO DAILY Entresto 97-103 mg tablet 1 tab PO BID eplerenone 25 mg tablet 25 mg PO DAILY metoprolol succinate 25 mg tablet extended release 24 hr 50 mg PO BID dapagliflozin 10 mg tablet 10 mg PO QAM Xeljanz XR 11 mg tablet extended release 24 hr 11 mg PO DAILY alendronate 70 mg tablet 70 mg PO QWEEK sulfasalazine 500 mg tablet 1 g PO BID Rx Instructions: give with food (meal/snack) furosemide 20 mg tablet 40 mg PO DAILY PRN (Reason: edema) magnesium 250 mg tablet 250 mg PO DAILY cholecalciferol (vitamin D3) 25 mcg (1,000 unit) capsule 25 mcg PO DAILY potassium chloride 10 mEq tablet extended release 10 meq PO DAILY PRN (Reason: for weight gain greater than 3 pounds) Follow up/Referrals: Matty Yang MD [Primary Care Provider] - 2 Weeks Visit Report/Discharge Packet Instructions: DI for Cellulitis -- Adult, Cat Scratch Fever, DI for Heart Failure, DI for Prescription Opioid Use Stand Alone Forms: Patient Portal/API, Stroke Signs & Symptoms Discharge Data Primary Care Provider: Matty Yang Discharges patient from system. Discharge Date/Time: 11/29/22 12:10 Quality VTE Deep Vein Thrombosis/Pulmonary Embolism Present on Admission: No
--- NOTE | 2022-11-29 09:22 | CM.DPC ---
DCP Discharge Home Per MD, pt medically stable to d/c home today on oral abx and no identified barriers to discharge. [place] and pt did not feel he had any further needs at this time and would not meet criteria for HH. Plan: Patient to d/c home via spouse back to [facility] and outpt f/u with PCP. No further SW needs at this time. WENDY Gomes
[2022-11-29] MEDS: AZITHROMYCIN 250 MG TABLET 500 MG PO (09:43)
[2022-11-29] MEDS: GABAPENTIN 300 MG CAPSULE PO (09:44)
[2022-11-29] MEDS: APIXABAN 5 MG TABLET PO (09:47)
[2022-11-29] MEDS: AMIODARONE 200 MG TABLET PO (09:47)
[2022-11-29] MEDS: OXYCODONE IR 5 MG TABLET PO (10:00)
--- NOTE | 2022-11-29 13:24 | PC.NURSE ---
Pt verbalized understanding of D/C instructions, s/s as to watch out for when to the return to the ED if needed and when to follow up PCP. Pt verbalized understanding of how to take his medications including new abx and how to continue with home medications. Pt's cellphone, clothing, phone osteopathic resident and home medications all sent home with pt and nothing left in the room.
== END 2022-11-29 12:10 | disposition home or self-care (01) | DRG 603 ==
LOC: ED 19:26 → AC 21:33
PROVIDERS: Admitting Provider Internal Medicine; Emergency Provider Emergency Medicine; PCP Family Medicine; Referring Provider Emergency Medicine; Visit Provider Internal Medicine
DX: L03.114 Cellulitis of left upper limb (principal); N17.9 Acute kidney failure, unspecified; I48.20 Chronic atrial fibrillation, unspecified; M48.50XA Collapsed vertebra, not elsewhere classified, site unspecified, initial encounter for fracture; I50.22 Chronic systolic (congestive) heart failure; D84.9 Immunodeficiency, unspecified; L40.50 Arthropathic psoriasis, unspecified; S50.812A Abrasion of left forearm, initial encounter; W55.03XA Scratched by cat, initial encounter; Z95.810 Presence of automatic (implantable) cardiac defibrillator; Z79.01 Long term (current) use of anticoagulants; Z20.822 Contact with and (suspected) exposure to COVID-19; W50.3XXA Accidental bite by another person, initial encounter
CPT/HCPCS: 36415; 71045; 80048; 80053; 83605; 83690; 84145; 85025; 85610; 85730; 87040; 87070; 87075; 87205; 87635; 87797; 93005; 93010; 96365; 96367; 96375; 99284; C9803; J0295; J2270